=== PATIENT | female | born 1980 | race Hispanic/Latino ===

== ENCOUNTER 2017-09-28 03:05 | Emergency (ER) | payer MEDICAID ==
[2017-09-28 03:16] VITALS: BMI 44.4
[2017-09-28 03:24] VITALS: RESP 18; TEMP 98.5
[2017-09-28] MEDS ORDERED: Sodium Chloride 0.9% 1,000 ML IV STA (03:45)
[2017-09-28] MEDS ORDERED: Atrop/Hyosc/Scopal/PB Elixir (120 ml) PO STA (03:49)
[2017-09-28] MEDS ORDERED: Alum-Mag Hydrox-Simethicone Susp (30 mL) PO STA (03:49)
--- NOTE | 2017-09-28 03:51 | ED PDOC ---
Arrival/HPI - General Chief Complaint: GI Problem Time Seen by Provider: 09/28/17 03:07 Historian: Patient - History of Present Illness Narrative History of Present Illness (Text): Patient is a 37 year old female with no significant past medical history who presents to the ED for evaluation and treatment of abdominal pain, nausea, vomiting which began yesterday after drinking ETOH and eating sea food at a wedding. Abdominal pain remains localized epigastric region. Experienced several bouts of loose watery bowel movements and nonbloody nonbilious emesis. Denies fever, chills, chest pain, SOB, constipation, and urinary symptoms. Past Medical History - Provider Review Nursing Documentation Reviewed: Yes (`) - Travel History Have you recently traveled outside [place] w/in the past 3 mons?: No - Cardiac Hx Cardiac Disorders: No - Pulmonary Hx Respiratory Disorders: No - Neurological Hx Neurological Disorder: No - HEENT Hx HEENT Disorder: No - Renal Hx Renal Disorder: No - Endocrine/Metabolic Hx Endocrine Disorders: No - Hematological/Oncological Hx Blood Disorders: No - Integumentary Hx Dermatological Disorder: No - Musculoskeletal/Rheumatological Hx Musculoskeletal Disorders: No - Gastrointestinal Hx Gastrointestinal Disorders: No - Genitourinary/Gynecological Hx Genitourinary Disorders: No - Psychiatric Hx Anxiety: Yes Hx Depression: No Hx Emotional Abuse: No Hx Physical Abuse: No Hx Substance Use: No Other/Comment: Aspergers - Surgical History Hx Cholecystectomy: Yes Hx Tonsillectomy: Yes - Anesthesia Hx Anesthesia: Yes Hx Anesthesia Reactions: No Hx Malignant Hyperthermia: No - Suicidal Assessment Feels Threatened In Home Enviroment: No Family/Social History - Physician Review Nursing Documentation Reviewed: Yes Family/Social History: Unknown Family HX Smoking Status: Former Smoker Hx Alcohol Use: Yes (SOCIALLY) Frequency of alcohol use: Socially Hx Substance Use: No Hx Substance Use Treatment: No Allergies/Home Meds Allergies/Adverse Reactions: Allergies famotidine [From Pepcid] Allergy (Verified 06/02/15 14:16) RASH lansoprazole [From Prevacid] Allergy (Verified 06/02/15 14:16) RASH Home Medications: Home Meds Medication Instructions Recorded Confirmed No Known Home Med 10/31/11 09/28/17 Review of Systems - Physician Review All systems were reviewed & negative as marked: Yes - Review of Systems Constitutional: Normal Eyes: Normal ENT: Normal Respiratory: Normal Cardiovascular: Normal Gastrointestinal: Abdominal Pain, Diarrhea, Nausea, Vomiting Musculoskeletal: Normal Skin: Normal Neurological: Normal Endocrine: Normal Hemo/Lymphatic: Normal Psychiatric: Normal Physical Exam Vital Signs Reviewed: Yes Vital Signs Temp Pulse Resp BP Pulse Ox 09/28/17 03:21 98.5 F 98 H 18 140/87 97 Temperature: Afebrile Blood Pressure: Normal Pulse: Regular Respiratory Rate: Normal Appearance: Positive for: Well-Appearing, Non-Toxic, Comfortable Pain Distress: None Mental Status: Positive for: Alert and Oriented X 3 - Systems Exam Head: Present: Atraumatic, Normocephalic Pupils: Present: PERRL Extroacular Muscles: Present: EOMI Conjunctiva: Present: Normal Mouth: Present: Moist Mucous Membranes Nose (External): Present: Atraumatic Neck: Present: Normal Range of Motion Respiratory/Chest: Present: Clear to Auscultation, Good Air Exchange. No: Respiratory Distress, Accessory Muscle Use Cardiovascular: Present: Regular Rate and Rhythm, Normal S1, S2. No: Murmurs Abdomen: No: Tenderness, Distention, Peritoneal Signs, Rebound, Guarding Back: Present: Normal Inspection Upper Extremity: Present: Normal Inspection. No: Cyanosis, Edema Lower Extremity: Present: Normal Inspection. No: Edema Neurological: Present: GCS=15, CN II-XII Intact, Speech Normal Skin: Present: Warm, Dry, Normal Color. No: Rashes Psychiatric: Present: Alert, Oriented x 3, Normal Insight, Normal Concentration Medical Decision Making ED Course and Treatment: Patient is a 37 year old female with no significant past medical history who presents to the ED for evaluation and treatment of abdominal pain, nausea, and vomiting. Abdominal pain Nausea Vomitting Diarrhea 09/28/17 03:58 - CBC, CMP - lipase - Mag - PT, PTT - beta HCG - UA - Zofran, GI cocktail, IVF NS 09/28/17 04:56 - leukocytosis noted - patient refused CT of abdomen, risks and benefits discussed - patient requests to go home, abdomen is soft, no tenderness, no guarding, no rebound tenderness - Lab Interpretations Lab Results: 09/28/17 04:00 09/28/17 04:00 Lab Results 09/28/17 04:00: Sodium 144, Potassium 4.4, Chloride 105, Carbon Dioxide 25, Anion Gap 19, BUN 14, Creatinine 0.8, Est GFR ( Amer) > 60, Est GFR (Non- Af Amer) > 60, Random Glucose 118 H, Calcium 9.3, Magnesium 2.2, Total Bilirubin 0.5, AST 23, ALT 31, Alkaline Phosphatase 87, Total Protein 8.7 H, Albumin 4.5, Globulin 4.1, Albumin/Globulin Ratio 1.1, Lipase 41 09/28/17 04:00: Urine Color Yellow, Urine Appearance Clear, Urine pH 6.0, Ur Specific [place] 1.025, Urine Protein Trace H, Urine Glucose (UA) Negative, Urine Ketones Negative, Urine Blood Trace-lysed H, Urine Nitrate Negative, Urine Bilirubin Negative, Urine Urobilinogen 0.2, Ur Leukocyte Esterase Trace H , Urine RBC 0 - 2, Urine WBC 1 - 3, Ur Epithelial Cells 4 - 5, Urine Bacteria Mod, Urine HCG, Qual Negative 09/28/17 04:00: PT 12.1, INR 1.05, APTT 29.6 09/28/17 04:00: WBC 16.4 H, RBC 4.88, Hgb 13.5, Hct 41.8, MCV 85.7, MCH 27.7, MCHC 32.3, RDW 14.9 H, Plt Count 356, MPV 9.4, Gran % 90.9 H, Lymph % (Auto) 5.3 L, [place] % (Auto) 3.2, Eos % (Auto) 0.5 L, Baso % (Auto) 0.1, Gran # 14.89 H , Lymph # (Auto) 0.9 L, [place] # (Auto) 0.5, Eos # (Auto) 0.1, Baso # (Auto) 0.01 , Neutrophils % (Manual) Pending, Lymphocytes % (Manual) Pending, Monocytes % ( Manual) Pending - Medication Orders Current Medication Orders: Discontinued Medications Al Hydrox/Mg Hydrox/Simethicone (Maalox Plus 30 Ml) 30 ml PO STAT STA Stop: 09/28/17 03:50 Last Admin: 09/28/17 04:17 Dose: 30 ml Belladonna/Phenobarbital ( Elixir) 10 ml PO STAT STA Stop: 09/28/17 03:50 Last Admin: 09/28/17 04:17 Dose: 10 ml Sodium Chloride (Sodium Chloride 0.9%) 1,000 mls @ 1,000 mls/hr IV .Q1H STA Stop: 09/28/17 04:44 Last Admin: 09/28/17 04:18 Dose: 1,000 mls/hr eMAR Start Stop Document 09/28/17 04:18 AD (Rec: 09/28/17 04:18 AD [email or web address]) Intravenous Solution Start Date 09/28/17 Start Time 04:18 Lidocaine HCl (Lidocaine 2% Viscous) 10 ml MM STAT STA Stop: 09/28/17 03:50 Last Admin: 09/28/17 04:18 Dose: 10 ml Ondansetron HCl (Zofran Inj) 4 mg IVP STAT STA Stop: 09/28/17 03:46 Last Admin: 09/28/17 04:17 Dose: 4 mg IVP Administration Document 09/28/17 04:17 AD (Rec: 09/28/17 04:17 AD [email or web address]) Charges for Administration # of IVP Administrations 1 Disposition/Present on Arrival - Present on Arrival Any Indicators Present on Arrival: No History of DVT/PE: No History of Uncontrolled Diabetes: No Urinary Catheter: No History of Decub. Ulcer: No History Surgical Site Infection Following: None - Disposition Have Diagnosis and Disposition been Completed?: Yes Diagnosis: Abdominal pain, Leukocytosis Disposition: HOME/ ROUTINE Disposition Time: 04:58 Patient Plan: Discharge Patient Problems: Current Active Problems Problem Status Onset Abdominal pain Acute Leukocytosis Acute Condition: STABLE Discharge Instructions (ExitCare): Acute Abdomen (Belly Pain), White Blood Cell Count Differential Test Additional Instructions: FLORINDA VELA, thank you for letting us take care of you today. Your provider was Victorino Lyons DO and you were treated for VOMITING. The emergency medical care you received today was directed at your acute symptoms. If you were prescribed any medication, please fill it and take as directed. It may take several days for your symptoms to resolve. Return to the Emergency Department if your symptoms worsen, do not improve, or if you have any other problems. Please contact your doctor or call one of the physicians/clinics you have been referred to that are listed on the Patient Visit Information form that is included in your discharge packet. Bring any paperwork you were given at discharge with you along with any medications you are taking to your follow up visit. Our treatment cannot replace ongoing medical care by a primary care provider outside of the emergency department. Thank you for allowing the [facility] team to be part of your care today. If you had an X-Ray or CT scan: A Radiologist will review the ED reading if any change in treatment is needed we will contact you. If you had a blood, urine, or wound culture: It will take several days for the results, if any change in treatment is needed we will contact you. If you had an STI test: It will take 48 hours for the results. Please call after 1 week if you have not heard back. You are declining a CT scan. you are able to return to any emergency room at any time with any concern. Discuss lab results with primary care physician Return to ER for new symptoms. Forms: [employer] (Japanese)
[2017-09-28 04:32] LABS: ALB/GLOB RATIO 1.1 (1.1-1.8); ALBUMIN 4.5 g/dL (3.0-4.8); ALT/SGPT 31 U/L (7-56); AST/SGOT 23 U/L (14-36); BLOOD UREA NITROGEN 14 mg/dL (7-21); CALCIUM 9.3 mg/dL (8.4-10.5); GFR AFRICAN-AMERICAN > 60; GFR NON-AFRICAN AMERICAN > 60; LIPASE 41 U/L (23-300)
[2017-09-28 04:42] LABS: BASO # 0.01 K/mm3 (0.0-2.0); BASO % 0.1 % (0.0-3.0); EOS # 0.1 (0.0-0.7); EOS % 0.5 % (1.5-5.0); GRAN # 14.89 (1.4-6.5); GRAN % 90.9 % (50.0-68.0); HEMOGLOBIN 13.5 g/dL (12.0-16.0); LYMPH # 0.9 (1.2-3.4); LYMPH % 5.3 % (22.0-35.0); MEAN CELL VOLUME 85.7 fl (80.0-105.0); MEAN CORPUSCULAR HEMOGLOBIN 27.7 pg (25.0-35.0); MEAN CORPUSCULAR HGB CONC 32.3 g/dl (31.0-37.0); MEAN PLATELET VOLUME 9.4 fl (7.0-11.0); MONO # 0.5 (0.1-0.6); MONO % 3.2 % (1.0-6.0); PLATELET COUNT 356 10^3/uL (120.0-450.0); RBC 4.88 10^6/uL (3.5-6.1); RED CELL DISTRIBUTION WIDTH 14.9 % (11.5-14.5); URINE BILIRUBIN NEGATIVE (NEGATIVE); URINE BLOOD TRACE-LYSED (NEGATIVE); URINE GLUCOSE (UA) NEGATIVE (NEGATIVE); URINE LEUKOCYTE ESTERASE TRACE Leu/uL (NEGATIVE); URINE PROTEIN TRACE mg/dL (<30 mg/dL); URINE UROBILINOGEN 0.2 E.U./dL (<1 E.U./dL); WHITE BLOOD COUNT 16.4 10^3/ul (4.5-11.0)
[2017-09-28 04:49] LABS: INR 1.05 (0.93-1.08); PARTIAL THROMBOPLASTIN TIME 29.6 Seconds (25.1-36.5); PROTHROMBIN TIME 12.1 SECONDS (9.4-12.5)
[2017-09-28 04:50] LABS: URINE APPEARANCE CLEAR (CLEAR); URINE COLOR YELLOW (YELLOW)
[2017-09-28 05:31] LABS: HCG,QUALITATIVE URINE NEGATIVE (NEGATIVE); URINE BACTERIA MOD (NEG); URINE RBC 0 - 2 /hpf (0-2)
[2017-09-28 05:39] VITALS: BP 131/82; PULSE 81; O2SAT 100
[2017-09-28 06:54] LABS: BAND 1 % (0-2); LYMPHOCYTE 6 % (22.0-35.0)
[2017-09-28 06:55] LABS: EOSINOPHIL 1 % (0.0-3.0); MONOCYTE 1 % (1.0-6.0); NEUTROPHIL 91 % (50.0-70.0); PLATELET ESTIMATE NORMAL (NORMAL)
== END 2017-09-28 05:37 | disposition home or self-care (01) ==
LOC: ED 03:05
DX: D72.829 Elevated white blood cell count, unspecified (principal); R10.13 Epigastric pain; Z87.891 Personal history of nicotine dependence
CPT/HCPCS: 80053; 81001; 83690; 83735; 84703; 85025; 85610; 85730; 87086; 96374; 99284; J2405; J7030